=== PATIENT | male | born 1955 | race Caucasian/White ===

== ENCOUNTER → 2018-03-29 14:52 | Outpatient (CLI) | payer OTHER ==
[2014-08-11 12:39] VITALS: BMI 29.9
[~2018-03-29 14:52] MED LIST: BAYER CHEWABLE81 MG PO; BENICAR20 MG PO; BRILINTA90 MG; LEVOXYL25 MCG PO; LIPITOR20 MG PO; LOPRESSOR25 MG PO; MULTIPLE VITAMI1 TA1 PO; NORVASC2.5 MG PO; PLAVIX75 MG PO; VOLTAREN25 MG PO
== END | disposition home or self-care (01) ==
LOC: D.CT 14:52
DX: R31.9 Hematuria, unspecified (principal); N23 Unspecified renal colic

== ENCOUNTER → 2018-10-24 10:17 | Outpatient (CLI) | payer OTHER ==
[2014-08-11 12:39] VITALS: BMI 29.9
== END | disposition home or self-care (01) ==
LOC: D.MRI 10:17
DX: Z82.3 Family history of stroke (principal)

== ENCOUNTER → 2019-08-12 07:55 | Outpatient (CLI) | payer OTHER ==
[2014-08-11 12:39] VITALS: BMI 29.9
== END | disposition home or self-care (01) ==
LOC: D.HCCARDIO 07:55
PROVIDERS: ATTEND Internal Medicine Cardiovascular Disease
DX: I25.810 Atherosclerosis of coronary artery bypass graft(s) without angina pectoris (principal)